=== PATIENT | male | born 1965 | race Caucasian/White ===

== ENCOUNTER 2020-08-21 08:45 | Emergency (ER) | payer OTHER ==
[~2020-08-21] VITALS: Ht 177.8 cm; Wt 100.9 kg
[2020-08-21 08:45] VITALS: BP 130/78
[2020-08-21 09:42] LABS: MICROSCOPIC NOT IND
--- NOTE | 2020-08-21 10:59 | NUR ---
benefit specialist note: Pt to room from lobby.
[2020-08-21] MEDS ORDERED: METHOCARBAMOL 750 MG TABLET ONE (11:13)
[2020-08-21] MEDS ORDERED: KETOROLAC 30 MG/1 ML ONE (11:13)
[2020-08-21] MEDS ORDERED: KETOROLAC 30 MG/1 ML IM ONE (11:30)
[2020-08-21] MEDS ORDERED: METHOCARBAMOL 750 MG TABLET PO ONE (11:30)
== END 2020-08-21 12:12 | disposition home or self-care (01) ==
LOC: ED 11:29
DX: M54.5 Low back pain (principal); M54.6 Pain in thoracic spine; R10.9 Unspecified abdominal pain
CPT/HCPCS: 81003; 96372; 99283; J1885